=== PATIENT | female | born 1955 | race African-American/Black ===

== ENCOUNTER 2017-10-06 18:02 | Inpatient (IN) | payer MEDICAID, OTHER ==
[~2017-10-06] VITALS: Ht 165.1 cm; Wt 105.2 kg
[2017-10-06] MEDS ORDERED: IPRATROPIUM BROMIDE (0.02%) 0.5MG/2.5ML NEB HHN STA (18:34)
[2017-10-06] MEDS ORDERED: ALBUTEROL (0.083%) 2.5MG/3ML NEB HHN STA (18:34)
[2017-10-06] MEDS ORDERED: METHYLPREDNISOLONE SOD SUCC 125 MG/2 ML VIAL IV STA (18:34)
[2017-10-06 18:40] LABS: BASOPHILS % 0.7 % (0.0-2.0); EOSINOPHILS % 2.5 % (0.0-5.0); HEMATOCRIT. 45.6 % (36.0-48.0); HEMOGLOBIN. 15.1 g/dL (12.0-16.0); LYMPHOCYTES % 15.4 % (20.0-50.0); MEAN CORPUSCULAR HEMOGLOBIN 30.9 pg (28.0-32.0); MEAN CORPUSCULAR VOLUME 93.5 fL (81.0-99.0); MEAN PLATELET VOLUME 8.6 fl (7.4-10.4); MONOCYTES % 6.1 % (2.0-8.0); NEUTROPHILS % 75.3 % (40.0-76.0); PLATELET 400 x1000/uL (130-400); RED BLOOD CELL COUNT 4.88 mill/uL (4.2-5.4); RED CELL DISTRIBUTION WIDTH 14.6 % (11.6-14.6)
[2017-10-06 18:42] LABS: CHLORIDE 103 mEq/L (98-107); INR 1.1; PROTHROMBIN TIME 11.2 sec (9.4-11.6)
[2017-10-06] MEDS ORDERED: MAGNESIUM 2 G PREMIX 50 ML IV ONE (18:45)
[2017-10-06] MEDS ORDERED: SODIUM CHLORIDE 0.9% 1,000 ML IV ONE (19:40)
[2017-10-06] MEDS ORDERED: ACETAMINOPHEN 325MG TABLET PO PRN (20:15)
[2017-10-06] MEDS ORDERED: CLONIDINE 0.1MG TABLET PO PRN (20:15)
[2017-10-06] MEDS ORDERED: LEVOFLOXACIN 500MG PREMIX 100 ML IV SCH (20:15)
[2017-10-06] MEDS ORDERED: GUAIFENESIN 200MG/10ML SUGAR FREE UDC PO PRN (20:15)
[2017-10-06] MEDS ORDERED: ONDANSETRON HCL 4MG/2ML VIAL IV PRN (20:15)
[2017-10-06] MEDS ORDERED: DOCUSATE SODIUM 100MG CAPSULE PO PRN (20:15)
[2017-10-06] MEDS ORDERED: MORPHINE SULFATE 4 MG/ML CPJ (NOT FOR IM USE) IV PRN (20:45)
[2017-10-06] MEDS: LORAZEPAM 2MG/ML CPJ IV PRN (20:55)
[2017-10-06] MEDS: HYDROCODONE/ACETAMINOPHEN 5/325MG TABLET PO PRN (20:56)
[2017-10-06] MEDS ORDERED: LEVOFLOXACIN 500MG PREMIX 100 ML IV NR (23:15)
[2017-10-07] VITALS (12 sets, daily range): BP systolic 124–159; BP diastolic 57–149
[2017-10-07] MEDS: IPRATROPIUM/ALBUTEROL 0.5-3(2.5)MG/3ML NEB INH SCH ×3 (04:46→21:50)
[2017-10-07] MEDS: METHYLPREDNISOLONE SOD SUCC 125 MG/2 ML VIAL IV SCH ×4 (05:17→23:51)
[2017-10-07 06:40] LABS: HEMATOCRIT. 42.4 % (36.0-48.0); MEAN CORPUSCULAR HEMOGLOBIN 30.9 pg (28.0-32.0); MEAN CORPUSCULAR VOLUME 93.5 fL (81.0-99.0); MEAN PLATELET VOLUME 9.1 fl (7.4-10.4); PLATELET 356 x1000/uL (130-400); RED BLOOD CELL COUNT 4.54 mill/uL (4.2-5.4); RED CELL DISTRIBUTION WIDTH 14.7 % (11.6-14.6)
[2017-10-07 07:54] LABS: CHLORIDE 104 mEq/L (98-107)
[2017-10-07] MEDS: ASPIRIN 81MG EC TABLET PO SCH (08:59)
[2017-10-07] MEDS: AMLODIPINE 10MG TABLET PO SCH (08:59)
[2017-10-07] MEDS: ENOXAPARIN 30MG/0.3ML SYR SUBCUT SCH ×2 (09:00→22:10)
[2017-10-07 12:05] LABS: PLATELET ESTIMATE NORMAL
[2017-10-07] MEDS: IPRATROPIUM/ALBUTEROL 0.5-3(2.5)MG/3ML NEB INH PRN ×2 (12:18→16:24)
[2017-10-07] MEDS ORDERED: LIDOCAINE HCL/PF 1% 2ML VIAL ONE (13:26)
[2017-10-07] MEDS: LORAZEPAM 2MG/ML CPJ IV PRN ×2 (14:05→23:02)
[2017-10-07] MEDS ORDERED: TERBUTALINE SULFATE 1MG/ML VIAL SUBCUT NR (15:30)
[2017-10-07 15:59] LABS: BG BASE EXCESS 1.4 mmol/L (-2.0-2.0); BG BILEVEL POS AIRWAY PRESSURE 15/5; BG CARBOXYHEMOGLOBIN 0.5 % (0.5-1.5); BG DEOXYHEMOGLOBIN 2.1 % (0.0-5.0); BG FRACTION INSPIRED OXYGEN 50; BG HCO3 ACT 29.6 mmol/L (22.0-26.0); BG METHEMOGLOBIN 0.4 % (0.0-1.5); BG OXYGEN SATURATION 97.9 % (92.0-98.5); BG PCO2 63.3 mmHg (35.0-45.0); BG PH 7.288 (7.350-7.450); BG PO2 119.1 mmHg (75.0-100.0); BG SAMPLE SITE RIGHT RADIAL; BG TOTAL HEMOGLOBIN 13.9 g/dL (12.0-18.0); BG VENT MODE MASK - BIPAP
[2017-10-07] MEDS ORDERED: NICOTINE 21MG PATCH TD ONE (16:15)
[2017-10-07] MEDS: NICOTINE 21MG PATCH TD SCH (16:50)
[2017-10-07] MEDS ORDERED: LEVOFLOXACIN 500MG PREMIX 100 ML IV SCH (23:00)
[2017-10-08] VITALS (10 sets, daily range): BP systolic 105–147; BP diastolic 48–97
[2017-10-08] MEDS: IPRATROPIUM/ALBUTEROL 0.5-3(2.5)MG/3ML NEB INH SCH ×3 (03:08→12:27)
[2017-10-08] MEDS: METHYLPREDNISOLONE SOD SUCC 125 MG/2 ML VIAL IV SCH ×3 (05:52→17:23)
[2017-10-08 07:09] LABS: CLARITY URINE CLEAR (CLEAR); COLOR URINE YELLOW (YELLOW); KETONES URINE NEGATIVE (NEGATIVE); LEUKOCYTE ESTERASE URINE NEGATIVE (NEGATIVE); NITRITE URINE NEGATIVE (NEGATIVE); OCCULT BLOOD URINE NEGATIVE (NEGATIVE); PROTEIN URINE NEGATIVE (NEGATIVE); SPECIFIC GRAVITY URINE 1.019 (1.005-1.030); UROBILINOGEN URINE 0.2 E.U./dL (0.2-1.0)
[2017-10-08 07:29] LABS: *BARBITURATES SCREEN URINE NEGATIVE (NEGATIVE); *BENZODIAZEPINES SCREEN URINE NEGATIVE (NEGATIVE); *COCAINE SCREEN URINE NEGATIVE (NEGATIVE); METHADONE URINE SCREEN NEGATIVE (NEGATIVE); OPIATES URINE SCREEN PRESUMTIVE POSITIVE (NEGATIVE)
[2017-10-08 07:30] LABS: CANNABINOID URINE SCREEN NEGATIVE (NEGATIVE); PHENCYCLIDINE URINE SCREEN NEGATIVE (NEGATIVE)
[2017-10-08 07:37] LABS: *AMPHETAMINES SCREEN URINE NEGATIVE (NEGATIVE)
[2017-10-08] MEDS: AMLODIPINE 10MG TABLET PO SCH (08:29)
[2017-10-08] MEDS: NICOTINE 21MG PATCH TD SCH (08:39)
[2017-10-08] MEDS: ASPIRIN 81MG EC TABLET PO SCH (08:40)
[2017-10-08] MEDS: ENOXAPARIN 30MG/0.3ML SYR SUBCUT SCH (08:40)
[2017-10-08] MEDS: HYDROCODONE/ACETAMINOPHEN 5/325MG TABLET PO PRN (10:20)
[2017-10-08] MEDS ORDERED: LEVOFLOXACIN 500MG TABLET PO SCH (13:00)
== END 2017-10-08 17:50 | disposition short-term general hospital (02) | DRG 193 ==
LOC: ER 18:02 → 5EST 19:47 → EDBEDREQTM 19:49 → EDBEDREQ 19:49 → SUPCPDRO 20:10 → EDBEDREQSVC 22:21 → ENRESERV 22:47
PROVIDERS: ADMIT Hospitalist; ATTEND Hospitalist
PROC: 5A09457 Assistance with Respiratory Ventilation, 24-96 Consecutive Hours, Continuous Positive Airway Pressure (ICD-10-PCS; principal; 2017-10-06)
DX: J18.9 Pneumonia, unspecified organism (principal); J96.00 Acute respiratory failure, unspecified whether with hypoxia or hypercapnia; J44.0 Chronic obstructive pulmonary disease with (acute) lower respiratory infection; J44.1 Chronic obstructive pulmonary disease with (acute) exacerbation; E66.9 Obesity, unspecified; F17.210 Nicotine dependence, cigarettes, uncomplicated; Z98.51 Tubal ligation status; Z88.6 Allergy status to analgesic agent; Z88.1 Allergy status to other antibiotic agents; Z88.0 Allergy status to penicillin; Z88.8 Allergy status to other drugs, medicaments and biological substances; Z68.38 Body mass index [BMI] 38.0-38.9, adult
CPT/HCPCS: 36415; 36600; 71045; 80053; 80305; 81003; 82375; 82805; 83605; 83690; 83880; 84484; 85025; 85610; 87040; 93005; 94640; 94644; 94660; J1650; J1956; J2060; J2930; J3105; J3475; J3490; J7030; J7611; J7620

== ENCOUNTER 2019-07-04 20:22 | Emergency (ER) | payer OTHER ==
[~2019-07-04] VITALS: Ht 162.6 cm; Wt 100.0 kg
[2019-07-04] MEDS ORDERED: ALBUTEROL (0.083%) 2.5MG/3ML NEB HHN STA (23:03)
[2019-07-04] MEDS ORDERED: PREDNISONE 20MG TABLET PO STA (23:03)
[2019-07-04] MEDS ORDERED: IPRATROPIUM BROMIDE (0.02%) 0.5MG/2.5ML NEB HHN STA (23:03)
[2019-07-04] MEDS ORDERED: FENTANYL CITRATE/PF 50MCG/ML 2ML VIAL IV ONE (23:15)
[2019-07-04] MEDS ORDERED: SODIUM CHLORIDE 0.9% 1000ML BAG (SEPSIS BOLUS) IV ONE (23:15)
[2019-07-04 23:54] LABS: BASOPHILS % 1.1 % (0.0-2.0); EOSINOPHILS % 2.2 % (0.0-5.0); HEMATOCRIT. 29.3 % (36.0-48.0); MEAN CORPUSCULAR HEMOGLOBIN 22.5 pg (28.0-32.0); MEAN CORPUSCULAR VOLUME 73.1 fL (81.0-99.0); MEAN PLATELET VOLUME 8.8 fl (7.4-10.4); MONOCYTES % 7.8 % (2.0-8.0); NEUTROPHILS % 74.9 % (40.0-76.0); PLATELET 226 x1000/uL (130-400); RED BLOOD CELL COUNT 4.01 mill/uL (4.2-5.4); RED CELL DISTRIBUTION WIDTH 19.1 % (11.6-14.6)
[2019-07-05 00:06] LABS: CHLORIDE 104 mEq/L (98-107)
[2019-07-05] MEDS ORDERED: CEFEPIME 1,000 MG in DEXTROSE 5% WATER 50 ML IV SCH (01:00)
[2019-07-05] MEDS ORDERED: VANCOMYCIN 1 G PREMIX 200 ML IV SCH (01:00)
[2019-07-05 02:03] LABS: CLARITY URINE TURBID (CLEAR); COLOR URINE YELLOW (YELLOW); KETONES URINE NEGATIVE (NEGATIVE); LEUKOCYTE ESTERASE URINE 3+ (NEGATIVE); NITRITE URINE POSITIVE (NEGATIVE); OCCULT BLOOD URINE TRACE (NEGATIVE); PH URINE 6.5 (4.5-8.0); PROTEIN URINE 1+ (NEGATIVE); SPECIFIC GRAVITY URINE 1.014 (1.005-1.030)
[2019-07-05] MEDS ORDERED: METHYLPREDNISOLONE SOD SUCC 125 MG/2 ML VIAL IV SCH (02:19)
[2019-07-05 05:00] VITALS: BP 111/62
== END 2019-07-05 06:38 | disposition short-term general hospital (02) ==
LOC: ER 20:22 → CANBEDREQ 07-05 06:45
DX: A41.9 Sepsis, unspecified organism (principal); L03.317 Cellulitis of buttock; J44.1 Chronic obstructive pulmonary disease with (acute) exacerbation; I10 Essential (primary) hypertension; M48.00 Spinal stenosis, site unspecified; Z88.6 Allergy status to analgesic agent; Z88.0 Allergy status to penicillin
CPT/HCPCS: 36415; 71045; 72170; 72220; 80053; 81003; 83605; 83880; 84145; 84484; 85025; 87040; 87086; 87186; 93005; 94644; 96365; 96375; 99291; J0692; J2930; J3010; J3370; J7030; J7060; J7512

== ENCOUNTER 2020-10-28 03:50 | Inpatient (IN) | payer OTHER ==
[2020-10-28] VITALS (45 sets, daily range): BP systolic 92–146; BP diastolic 47–92
[~2020-10-28] VITALS: Ht 165.1 cm; Wt 108.9 kg
[2020-10-28] MEDS ORDERED: ONDANSETRON HCL 4MG/2ML INJ IV STA (04:03)
[2020-10-28] MEDS ORDERED: IPRATROPIUM BROMIDE (0.02%) 0.5MG/2.5ML NEB HHN STA (04:03)
[2020-10-28] MEDS ORDERED: FUROSEMIDE 40MG/4ML VIAL IV ONE (04:15)
[2020-10-28] MEDS ORDERED: NITROGLYCERIN OINT 1GM/INCH UDPKT TD ONE (04:15)
[2020-10-28] MEDS ORDERED: ALBUTEROL (0.083%) 2.5MG/3ML NEB HHN SCH (04:30)
[2020-10-28 04:35] LABS: CHLORIDE 105 mEq/L (98-107)
[2020-10-28] MEDS ORDERED: ETOMIDATE 2MG/ML 10ML VIAL IV ONE (04:45)
[2020-10-28] MEDS ORDERED: PROPOFOL 10MG/ML 100ML 100 ML IV ONE (04:45)
[2020-10-28] MEDS ORDERED: VECURONIUM BROMIDE 10 MG/VIAL IV ONE (04:45)
[2020-10-28 04:52] LABS: BASOPHILS % 1.1 % (0.0-2.0); HEMATOCRIT. 34.8 % (36.0-48.0); HEMOGLOBIN. 10.1 g/dL (12.0-16.0); LYMPHOCYTES % 13.8 % (20.0-50.0); MEAN CORPUSCULAR HEMOGLOBIN 22.7 pg (28.0-32.0); MEAN CORPUSCULAR VOLUME 78.7 fL (81.0-99.0); MEAN PLATELET VOLUME 8.5 fl (7.4-10.4); NEUTROPHILS % 77.1 % (40.0-76.0); PLATELET 504 x1000/uL (130-400); RED BLOOD CELL COUNT 4.42 mill/uL (4.2-5.4); RED CELL DISTRIBUTION WIDTH 21.2 % (11.6-14.6)
[2020-10-28] MEDS ORDERED: MIDAZOLAM HCL 50 MG in DEXTROSE 5% WATER 40 ML IV STA (05:44)
[2020-10-28] MEDS ORDERED: MIDAZOLAM HCL 100 MG in DEXT 5% WATER 80 ML IV PRN (06:00)
[2020-10-28 06:07] LABS: BG CARBOXYHEMOGLOBIN 2.8 % (0.5-1.5); BG DEOXYHEMOGLOBIN 0.2 % (0.0-5.0); BG FRACTION INSPIRED OXYGEN 100; BG HCO3 ACT 34.4 mmol/L (22.0-26.0); BG METHEMOGLOBIN 0.3 % (0.0-1.5); BG OXYGEN SATURATION 99.8 % (92.0-98.5); BG OXYHEMOGLOBIN 96.7 % (94.0-97.0); BG PCO2 58.8 mmHg (35.0-45.0); BG PH 7.385 (7.350-7.450); BG PO2 379.6 mmHg (75.0-100.0); BG SAMPLE SITE LEFT RADIAL; BG TOTAL HEMOGLOBIN 9.6 g/dL (12.0-18.0); BG VENT MODE VENT - AC
[2020-10-28] MEDS: MIDAZOLAM HCL 100 MG in SODIUM CHLORIDE 0.9% 80 ML IV PRN ×3 (06:28→17:47)
[2020-10-28] MEDS ORDERED: HYDRALAZINE 20MG/ML VIAL IV PRN (08:00)
[2020-10-28] MEDS ORDERED: ONDANSETRON HCL 4MG/2ML INJ IV PRN (08:00)
[2020-10-28] MEDS ORDERED: DIPHENHYDRAMINE 50MG/ML VIAL IV PRN (08:00)
[2020-10-28] MEDS ORDERED: IPRATROPIUM/ALBUTEROL 0.5-3(2.5)MG/3ML NEB HHN PRN (08:00)
[2020-10-28] MEDS ORDERED: CLONIDINE 0.1MG TABLET PO PRN (08:00)
[2020-10-28] MEDS ORDERED: GUAIFENESIN 200MG/10ML SUGAR FREE UDC PO PRN (08:00)
[2020-10-28] MEDS ORDERED: DOCUSATE SODIUM 100MG CAPSULE PO PRN (08:00)
[2020-10-28] MEDS ORDERED: MAGNESIUM/ALUMINUM HYDROXIDE/SIMETHICONE 30ML UDC PO PRN (08:00)
[2020-10-28] MEDS ORDERED: ENOXAPARIN 40MG/0.4ML SYR SUBCUT SCH ×2 (08:00→09:00)
[2020-10-28] MEDS ORDERED: HYDROCODONE/ACETAMINOPHEN 5/325MG TABLET PO PRN (08:00)
[2020-10-28] MEDS ORDERED: MORPHINE SULFATE 2 MG/ML CPJ (NOT FOR IM USE) IV PRN (08:00)
[2020-10-28] MEDS ORDERED: LORAZEPAM 2MG/ML CPJ IV PRN (08:00)
[2020-10-28] MEDS ORDERED: ACETAMINOPHEN 325MG TABLET PO PRN (08:00)
[2020-10-28] MEDS ORDERED: NOREPINEPHRINE 8MG/250ML PMX 250 ML IV ONE (08:30)
[2020-10-28] MEDS ORDERED: FENTANYL CITRATE/PF 2,500 MCG in SODIUM CHLORIDE 0.9% 200 ML IV PRN ×2 (08:30→09:11)
[2020-10-28] MEDS: NOREPINEPHRINE 8MG/250ML PMX 250 ML IV PRN ×2 (08:49→12:06)
[2020-10-28] MEDS ORDERED: LEVOFLOXACIN 500MG PREMIX 100 ML IV SCH (09:00)
[2020-10-28] MEDS: DEXT 5%/0.45% NACL 1000ML 1,000 ML IV SCH (09:00)
[2020-10-28] MEDS: FENTANYL CITRATE/PF 2,500 MCG in SODIUM CHLORIDE 0.9% 200 ML IV PRN ×2 (09:50→17:54)
[2020-10-28 12:37] LABS: PROTHROMBIN TIME 10.9 sec (9.6-11.0)
[2020-10-28 12:45] LABS: *BENZODIAZEPINES SCREEN URINE PRESUMTIVE POSITIVE (NEGATIVE); *COCAINE SCREEN URINE NEGATIVE (NEGATIVE)
[2020-10-28 12:46] LABS: *AMPHETAMINES SCREEN URINE NEGATIVE (NEGATIVE); *BARBITURATES SCREEN URINE NEGATIVE (NEGATIVE); METHADONE URINE SCREEN NEGATIVE (NEGATIVE); OPIATES URINE SCREEN NEGATIVE (NEGATIVE)
[2020-10-28 12:47] LABS: CLARITY URINE CLEAR (CLEAR); COLOR URINE YELLOW (YELLOW); KETONES URINE NEGATIVE (NEGATIVE); LEUKOCYTE ESTERASE URINE 2+ (NEGATIVE); NITRITE URINE NEGATIVE (NEGATIVE); OCCULT BLOOD URINE 3+ (NEGATIVE); PROTEIN URINE NEGATIVE (NEGATIVE); SPECIFIC GRAVITY URINE 1.044 (1.005-1.030)
[2020-10-28 12:52] LABS: PHENCYCLIDINE URINE SCREEN NEGATIVE (NEGATIVE)
[2020-10-28 12:54] LABS: CANNABINOID URINE SCREEN NEGATIVE (NEGATIVE)
[2020-10-28] MEDS: FAMOTIDINE 20MG TABLET PO SCH ×2 (13:14→22:56)
[2020-10-28] MEDS: ENOXAPARIN 40MG/0.4ML SYR SUBCUT SCH (13:15)
[2020-10-28] MEDS: LEVOFLOXACIN 500MG PREMIX 100 ML IV SCH (13:15)
[2020-10-28] MEDS: METHYLPREDNISOLONE SOD SUCC 40 MG/ML VIAL IV SCH ×3 (13:23→22:56)
[2020-10-28] MEDS ORDERED: LIDOCAINE HCL 1% 20ML VIAL (Pyxis) INJ ONE ×2 (13:39→13:40)
[2020-10-28] MEDS: SODIUM CHLORIDE 0.9% INJ 3ML FLUSH IVF SCH ×2 (14:00→22:00)
[2020-10-28] MEDS ORDERED: IOHEXOL-350 100 ML BOTTLE ONE (14:21)
[2020-10-28] MEDS: IPRATROPIUM/ALBUTEROL 0.5-3(2.5)MG/3ML NEB HHN SCH (20:45)
[2020-10-28 21:49] LABS: CREATINE KINASE MB FRACTION 1.4 ng/mL (0.5-3.6)
[2020-10-29] VITALS (77 sets, daily range): BP systolic 86–159; BP diastolic 45–89
[2020-10-29] MEDS: IPRATROPIUM/ALBUTEROL 0.5-3(2.5)MG/3ML NEB HHN SCH ×6 (00:17→21:02)
[2020-10-29] MEDS: ENOXAPARIN 40MG/0.4ML SYR SUBCUT SCH ×2 (01:27→12:14)
[2020-10-29] MEDS: DEXT 5%/0.45% NACL 1000ML 1,000 ML IV SCH (04:00)
[2020-10-29] MEDS: SODIUM CHLORIDE 0.9% INJ 3ML FLUSH IVF SCH (05:06)
[2020-10-29] MEDS: METHYLPREDNISOLONE SOD SUCC 40 MG/ML VIAL IV SCH ×3 (05:06→22:05)
[2020-10-29 05:52] LABS: HEMATOCRIT. 28.8 % (36.0-48.0); HEMOGLOBIN. 8.3 g/dL (12.0-16.0); MEAN CORPUSCULAR HEMOGLOBIN 22.2 pg (28.0-32.0); MEAN CORPUSCULAR VOLUME 76.9 fL (81.0-99.0); MEAN PLATELET VOLUME 8.8 fl (7.4-10.4); PLATELET 366 x1000/uL (130-400); RED BLOOD CELL COUNT 3.74 mill/uL (4.2-5.4); RED CELL DISTRIBUTION WIDTH 20.3 % (11.6-14.6)
[2020-10-29 05:55] LABS: CHLORIDE 106 mEq/L (98-107)
[2020-10-29] MEDS: FAMOTIDINE 20MG TABLET PO SCH ×2 (09:06→22:05)
[2020-10-29 09:37] LABS: BG BASE EXCESS 8.7 mmol/L (-2.0-2.0); BG CARBOXYHEMOGLOBIN 1.1 % (0.5-1.5); BG DEOXYHEMOGLOBIN 5.1 % (0.0-5.0); BG FRACTION INSPIRED OXYGEN 60; BG HCO3 ACT 34.1 mmol/L (22.0-26.0); BG METHEMOGLOBIN 0.2 % (0.0-1.5); BG OXYGEN SATURATION 94.8 % (92.0-98.5); BG OXYHEMOGLOBIN 93.6 % (94.0-97.0); BG PCO2 51.8 mmHg (35.0-45.0); BG PH 7.436 (7.350-7.450); BG PO2 70.5 mmHg (75.0-100.0); BG SAMPLE SITE RIGHT RADIAL; BG TOTAL HEMOGLOBIN 9.2 g/dL (12.0-18.0); BG VENT MODE VENT - AC
[2020-10-29] MEDS ORDERED: POTASSIUM CHLORIDE 20MEQ TABLET SR PO NR (09:45)
[2020-10-29] MEDS: FUROSEMIDE 40MG/4ML VIAL IVP SCH ×2 (10:25→17:18)
[2020-10-29] MEDS: LEVOFLOXACIN 500MG PREMIX 100 ML IV SCH (12:15)
[2020-10-29 17:13] LABS: PLATELET ESTIMATE NORMAL
[2020-10-29] MEDS: FENTANYL CITRATE/PF 2,500 MCG in SODIUM CHLORIDE 0.9% 200 ML IV PRN (18:23)
[2020-10-29] MEDS ORDERED: NOREPINEPHRINE 8 MG in DEXTROSE 5% WATER 250 ML IV PRN (19:45)
[2020-10-29] MEDS: MIDAZOLAM HCL 100 MG in SODIUM CHLORIDE 0.9% 80 ML IV PRN (20:02)
[2020-10-29] MEDS: ENOXAPARIN 30MG/0.3ML SYR SUBCUT SCH (22:06)
[2020-10-30] VITALS (74 sets, daily range): BP systolic 94–158; BP diastolic 59–87
[2020-10-30] MEDS ORDERED: MIDAZOLAM HCL 100 MG in SODIUM CHLORIDE 0.9% 80 ML IV PRN (00:30)
[2020-10-30] MEDS: IPRATROPIUM/ALBUTEROL 0.5-3(2.5)MG/3ML NEB HHN SCH ×6 (01:03→20:32)
[2020-10-30 05:54] LABS: HEMATOCRIT. 27.7 % (36.0-48.0); HEMOGLOBIN. 8.4 g/dL (12.0-16.0); MEAN CORPUSCULAR VOLUME 75.9 fL (81.0-99.0); MEAN PLATELET VOLUME 8.7 fl (7.4-10.4); PLATELET 371 x1000/uL (130-400); RED BLOOD CELL COUNT 3.65 mill/uL (4.2-5.4); RED CELL DISTRIBUTION WIDTH 20.4 % (11.6-14.6)
[2020-10-30] MEDS: FUROSEMIDE 40MG/4ML VIAL IVP SCH ×2 (06:22→17:56)
[2020-10-30] MEDS: METHYLPREDNISOLONE SOD SUCC 40 MG/ML VIAL IV SCH ×3 (06:22→17:56)
[2020-10-30 08:48] LABS: PLATELET ESTIMATE NORMAL
[2020-10-30] MEDS: FAMOTIDINE 20MG TABLET PO SCH ×2 (09:00→20:46)
[2020-10-30 10:05] LABS: BG BASE EXCESS 9.2 mmol/L (-2.0-2.0); BG CARBOXYHEMOGLOBIN 0.3 % (0.5-1.5); BG DEOXYHEMOGLOBIN 10.6 % (0.0-5.0); BG FRACTION INSPIRED OXYGEN 40; BG HCO3 ACT 36.1 mmol/L (22.0-26.0); BG METHEMOGLOBIN 0.3 % (0.0-1.5); BG OXYGEN SATURATION 89.3 % (92.0-98.5); BG OXYHEMOGLOBIN 88.8 % (94.0-97.0); BG PCO2 63.4 mmHg (35.0-45.0); BG PH 7.373 (7.350-7.450); BG PO2 61.8 mmHg (75.0-100.0); BG SAMPLE SITE RIGHT RADIAL; BG TOTAL HEMOGLOBIN 9.7 g/dL (12.0-18.0); BG VENT MODE VENT - CPAP
[2020-10-30] MEDS: ENOXAPARIN 30MG/0.3ML SYR SUBCUT SCH ×2 (10:27→20:46)
[2020-10-30] MEDS: LEVOFLOXACIN 500MG PREMIX 100 ML IV SCH (13:55)
[2020-10-30] MEDS: METOCLOPRAMIDE HCL 10MG/2ML VIAL IV SCH ×2 (13:56→17:56)
[2020-10-30] MEDS: FENTANYL CITRATE/PF 2,500 MCG in SODIUM CHLORIDE 0.9% 200 ML IV PRN (17:38)
== END 2020-10-31 00:01 | disposition short-term general hospital (02) | DRG 208 ==
LOC: ER 03:50 → CVICU 06:07 → ENRESERV 07:40
PROVIDERS: ADMIT Internal Medicine; ATTEND Internal Medicine
PROC: 5A1945Z Respiratory Ventilation, 24-96 Consecutive Hours (ICD-10-PCS; principal; 2020-10-28)
PROC: 0BH17EZ Insertion of Endotracheal Airway into Trachea, Via Natural or Artificial Opening (ICD-10-PCS; 2020-10-28)
PROC: 02HV33Z Insertion of Infusion Device into Superior Vena Cava, Percutaneous Approach (ICD-10-PCS; 2020-10-28)
PROC: B548ZZA Ultrasonography of Superior Vena Cava, Guidance (ICD-10-PCS; 2020-10-28)
DX: J96.02 Acute respiratory failure with hypercapnia (principal); I50.33 Acute on chronic diastolic (congestive) heart failure; J44.1 Chronic obstructive pulmonary disease with (acute) exacerbation; N39.0 Urinary tract infection, site not specified; R65.10 Systemic inflammatory response syndrome (SIRS) of non-infectious origin without acute organ dysfunction; D50.9 Iron deficiency anemia, unspecified; E66.01 Morbid (severe) obesity due to excess calories; Z20.822 Contact with and (suspected) exposure to COVID-19; E78.5 Hyperlipidemia, unspecified; E87.70 Fluid overload, unspecified; F17.210 Nicotine dependence, cigarettes, uncomplicated; Z79.899 Other long term (current) drug therapy; Z82.49 Family history of ischemic heart disease and other diseases of the circulatory system; Z88.0 Allergy status to penicillin; Z71.6 Tobacco abuse counseling; Z68.39 Body mass index [BMI] 39.0-39.9, adult; I11.0 Hypertensive heart disease with heart failure; R74.8 Abnormal levels of other serum enzymes
CPT/HCPCS: 36415; 36600; 71045; 71275; 74018; 76937; 80048; 80053; 80061; 80305; 81003; 82375; 82550; 82553; 82805; 83605; 83735; 83880; 84484; 85025; 87070; 87077; 87186; 87426; 93005; 93306; 93970; 94003; 94640; 99291; C1725; J1200; J1650; J1940; J1956; J2250; J2405; J2704; J2765; J2920; J3010; J3490; J7050; J7060; Q9967

== ENCOUNTER 2020-11-16 13:38 | Inpatient (IN) | payer MEDICARE, OTHER ==
[~2020-11-16] VITALS: Ht 165.1 cm; Wt 112.7 kg
[2020-11-16] MEDS ORDERED: METHYLPREDNISOLONE SOD SUCC 125 MG/2 ML VIAL IV STA (14:02)
[2020-11-16] MEDS ORDERED: IPRATROPIUM BROMIDE (0.02%) 0.5MG/2.5ML NEB HHN STA (14:02)
[2020-11-16] MEDS: ALBUTEROL (0.083%) 2.5MG/3ML NEB HHN SCH ×3 (14:41→15:54)
[2020-11-16 15:09] LABS: CHLORIDE 105 mEq/L (98-107)
[2020-11-16 15:14] LABS: ETHANOL BLOOD < 10 mg/dL
[2020-11-16 15:18] LABS: CREATINE KINASE 37 IU/L (26-192)
[2020-11-16 15:19] LABS: PROTHROMBIN TIME 10.9 sec (9.6-11.0)
[2020-11-16 15:24] LABS: HEMATOCRIT. 25.1 % (36.0-48.0); HEMOGLOBIN. 7.7 g/dL (12.0-16.0); MEAN CORPUSCULAR HEMOGLOBIN 24.1 pg (28.0-32.0); MEAN CORPUSCULAR VOLUME 78.5 fL (81.0-99.0); MEAN PLATELET VOLUME 8.1 fl (7.4-10.4); PLATELET 549 x1000/uL (130-400); RED BLOOD CELL COUNT 3.19 mill/uL (4.2-5.4); RED CELL DISTRIBUTION WIDTH 22.8 % (11.6-14.6)
[2020-11-16 15:32] LABS: BG BASE EXCESS 10.6 mmol/L (-2.0-2.0); BG CARBOXYHEMOGLOBIN 1.7 % (0.5-1.5); BG DEOXYHEMOGLOBIN 4.8 % (0.0-5.0); BG HCO3 ACT 38.4 mmol/L (22.0-26.0); BG METHEMOGLOBIN 0.3 % (0.0-1.5); BG OXYGEN SATURATION 95.1 % (92.0-98.5); BG OXYHEMOGLOBIN 93.2 % (94.0-97.0); BG PCO2 75.7 mmHg (35.0-45.0); BG PH 7.323 (7.350-7.450); BG PO2 80.9 mmHg (75.0-100.0); BG SAMPLE SITE RIGHT RADIAL; BG TOTAL HEMOGLOBIN 8.6 g/dL (12.0-18.0); BG VENT MODE MASK - BIPAP
[2020-11-16] MEDS ORDERED: VANCOMYCIN 1 G PREMIX 200 ML IV SCH (15:45)
[2020-11-16] MEDS ORDERED: FUROSEMIDE 40MG/4ML VIAL IVP ONE (16:00)
[2020-11-16] MEDS ORDERED: ONDANSETRON HCL 4MG/2ML INJ IV PRN (16:30)
[2020-11-16] MEDS ORDERED: DIPHENHYDRAMINE 50MG/ML VIAL IV PRN (16:30)
[2020-11-16] MEDS ORDERED: MAGNESIUM/ALUMINUM HYDROXIDE/SIMETHICONE 30ML UDC PO PRN (16:30)
[2020-11-16] MEDS ORDERED: IPRATROPIUM/ALBUTEROL 0.5-3(2.5)MG/3ML NEB HHN PRN (16:30)
[2020-11-16] MEDS ORDERED: DOCUSATE SODIUM 100MG CAPSULE PO PRN (16:30)
[2020-11-16] MEDS ORDERED: CLONIDINE 0.1MG TABLET PO PRN (16:30)
[2020-11-16] MEDS ORDERED: HYDROCODONE/ACETAMINOPHEN 5/325MG TABLET PO PRN (16:30)
[2020-11-16] MEDS ORDERED: MORPHINE SULFATE 2 MG/ML CPJ (NOT FOR IM USE) IV PRN (16:30)
[2020-11-16] MEDS ORDERED: ACETAMINOPHEN 325MG TABLET PO PRN (16:30)
[2020-11-16] MEDS ORDERED: POTASSIUM CHLORIDE 20MEQ TABLET SR PO ONE (16:30)
[2020-11-16] MEDS ORDERED: HYDRALAZINE 20MG/ML VIAL IV PRN (16:30)
[2020-11-16] MEDS ORDERED: POTASSIUM CHLORIDE 20MEQ TABLET SR PO NR (16:46)
[2020-11-16] MEDS: AZTREONAM 1 G in DEXTROSE 5% WATER 50 ML IV SCH (17:04)
[2020-11-16] MEDS: LEVOFLOXACIN 500MG PREMIX 100 ML IV SCH (17:08)
[2020-11-16 17:35] LABS: PLATELET ESTIMATE INCREASED
[2020-11-16] MEDS: ENOXAPARIN 30MG/0.3ML SYR SUBCUT SCH (18:09)
[2020-11-16] MEDS: SODIUM CHLORIDE 0.9% INJ 3ML FLUSH IVF SCH (22:00)
[2020-11-16] MEDS: LORAZEPAM 2MG/ML CPJ IV PRN (23:46)
[2020-11-17] MEDS: AZTREONAM 1 G in DEXTROSE 5% WATER 50 ML IV SCH ×2 (04:47→17:46)
[2020-11-17] MEDS: LORAZEPAM 2MG/ML CPJ IV PRN ×2 (04:52→19:57)
[2020-11-17] MEDS: SODIUM CHLORIDE 0.9% INJ 3ML FLUSH IVF SCH ×3 (06:00→22:00)
[2020-11-17] MEDS: ENOXAPARIN 30MG/0.3ML SYR SUBCUT SCH ×2 (06:57→19:56)
[2020-11-17 10:37] LABS: HEMATOCRIT. 25.8 % (36.0-48.0); HEMOGLOBIN. 8.1 g/dL (12.0-16.0); MEAN CORPUSCULAR HEMOGLOBIN 24.5 pg (28.0-32.0); MEAN CORPUSCULAR VOLUME 78.3 fL (81.0-99.0); RED BLOOD CELL COUNT 3.29 mill/uL (4.2-5.4); RED CELL DISTRIBUTION WIDTH 22.6 % (11.6-14.6)
[2020-11-17 10:43] LABS: CHLORIDE 101 mEq/L (98-107)
[2020-11-17 11:55] LABS: PLATELET ESTIMATE INCREASED
[2020-11-17 11:56] LABS: MEAN PLATELET VOLUME 8.5 fl (7.4-10.4); PLATELET 447 x1000/uL (130-400)
[2020-11-17 12:33] LABS: BG BASE EXCESS 14.8 mmol/L (-2.0-2.0); BG CARBOXYHEMOGLOBIN 0.3 % (0.5-1.5); BG DEOXYHEMOGLOBIN 0.7 % (0.0-5.0); BG FRACTION INSPIRED OXYGEN 100; BG HCO3 ACT 44.2 mmol/L (22.0-26.0); BG METHEMOGLOBIN 0.8 % (0.0-1.5); BG OXYGEN SATURATION 99.3 % (92.0-98.5); BG OXYHEMOGLOBIN 98.2 % (94.0-97.0); BG PCO2 97.5 mmHg (35.0-45.0); BG PH 7.274 (7.350-7.450); BG PO2 353.1 mmHg (75.0-100.0); BG SAMPLE SITE RIGHT RADIAL; BG TOTAL HEMOGLOBIN 8.7 g/dL (12.0-18.0); BG VENT MODE MASK - NRB
[2020-11-17] MEDS: FUROSEMIDE 40MG/4ML VIAL IVP SCH (17:35)
[2020-11-17] MEDS ORDERED: NALOXONE HCL 0.4MG/ML VIAL IV PRN (18:30)
[2020-11-17] MEDS: LEVOFLOXACIN 500MG PREMIX 100 ML IV SCH (18:32)
[2020-11-17] MEDS: METHYLPREDNISOLONE SOD SUCC 40 MG/ML VIAL IV SCH (19:57)
[2020-11-17] MEDS: IPRATROPIUM/ALBUTEROL 0.5-3(2.5)MG/3ML NEB HHN SCH (20:20)
[2020-11-17 22:13] LABS: BG BASE EXCESS 16.2 mmol/L (-2.0-2.0); BG CARBOXYHEMOGLOBIN 0.9 % (0.5-1.5); BG DEOXYHEMOGLOBIN 8.4 % (0.0-5.0); BG FRACTION INSPIRED OXYGEN 28; BG HCO3 ACT 41.4 mmol/L (22.0-26.0); BG OXYGEN SATURATION 91.5 % (92.0-98.5); BG OXYHEMOGLOBIN 90.7 % (94.0-97.0); BG PCO2 54.9 mmHg (35.0-45.0); BG PH 7.495 (7.350-7.450); BG PO2 56.5 mmHg (75.0-100.0); BG SAMPLE SITE RIGHT RADIAL; BG TOTAL HEMOGLOBIN 8.9 g/dL (12.0-18.0); BG VENT MODE MASK - CPAP
[2020-11-18] VITALS (7 sets, daily range): BP systolic 103–139; BP diastolic 66–81
[2020-11-18] MEDS: METHYLPREDNISOLONE SOD SUCC 40 MG/ML VIAL IV SCH ×3 (02:33→18:28)
[2020-11-18] MEDS: IPRATROPIUM/ALBUTEROL 0.5-3(2.5)MG/3ML NEB HHN SCH ×5 (03:40→20:49)
[2020-11-18] MEDS: AZTREONAM 1 G in DEXTROSE 5% WATER 50 ML IV SCH (04:00)
[2020-11-18] MEDS: SODIUM CHLORIDE 0.9% INJ 3ML FLUSH IVF SCH ×3 (06:00→21:46)
[2020-11-18] MEDS: LORAZEPAM 2MG/ML CPJ IV PRN ×3 (06:19→19:14)
[2020-11-18 07:17] LABS: CLARITY URINE CLEAR (CLEAR); COLOR URINE YELLOW (YELLOW); KETONES URINE 1+ (NEGATIVE); LEUKOCYTE ESTERASE URINE 3+ (NEGATIVE); NITRITE URINE POSITIVE (NEGATIVE); OCCULT BLOOD URINE NEGATIVE (NEGATIVE); PROTEIN URINE TRACE (NEGATIVE); SPECIFIC GRAVITY URINE 1.015 (1.005-1.030)
[2020-11-18 07:33] LABS: *AMPHETAMINES SCREEN URINE NEGATIVE (NEGATIVE); *BARBITURATES SCREEN URINE NEGATIVE (NEGATIVE); *BENZODIAZEPINES SCREEN URINE NEGATIVE (NEGATIVE)
[2020-11-18 07:34] LABS: *COCAINE SCREEN URINE NEGATIVE (NEGATIVE); CANNABINOID URINE SCREEN NEGATIVE (NEGATIVE); METHADONE URINE SCREEN NEGATIVE (NEGATIVE); OPIATES URINE SCREEN PRESUMTIVE POSITIVE (NEGATIVE); PHENCYCLIDINE URINE SCREEN NEGATIVE (NEGATIVE)
[2020-11-18] MEDS: ENOXAPARIN 30MG/0.3ML SYR SUBCUT SCH ×2 (07:48→18:00)
[2020-11-18] MEDS: FUROSEMIDE 40MG/4ML VIAL IVP SCH ×2 (11:45→17:00)
[2020-11-18] MEDS ORDERED: MONT10TA32 PO (12:20)
[2020-11-18] MEDS ORDERED: TIOT4MIS2 IH (12:20)
[2020-11-18] MEDS ORDERED: [UNRECOGNIZED DRUG - CODE] PO (12:20)
[2020-11-18] MEDS ORDERED: FURO40TA5 PO (12:20)
[2020-11-18] MEDS ORDERED: LORA-249 PO (12:20)
[2020-11-18] MEDS ORDERED: [UNRECOGNIZED DRUG - CODE] PO (12:20)
[2020-11-18 12:38] LABS: BG BASE EXCESS 15.8 mmol/L (-2.0-2.0); BG CARBOXYHEMOGLOBIN 0.8 % (0.5-1.5); BG DEOXYHEMOGLOBIN 8.7 % (0.0-5.0); BG HCO3 ACT 41.2 mmol/L (22.0-26.0); BG METHEMOGLOBIN 0.2 % (0.0-1.5); BG OXYGEN SATURATION 91.2 % (92.0-98.5); BG OXYHEMOGLOBIN 90.3 % (94.0-97.0); BG PCO2 56.3 mmHg (35.0-45.0); BG PH 7.482 (7.350-7.450); BG PO2 65.3 mmHg (75.0-100.0); BG SAMPLE SITE RIGHT RADIAL; BG TOTAL HEMOGLOBIN 9.2 g/dL (12.0-18.0); BG VENT MODE NASAL CANNULA
[2020-11-18] MEDS: PREGABALIN 75MG CAPSULE PO SCH (17:00)
[2020-11-18] MEDS: LEVOFLOXACIN 500MG PREMIX 100 ML IV SCH (19:15)
[2020-11-18] MEDS: MONTELUKAST SODIUM 10MG TABLET PO SCH (21:46)
[2020-11-19] VITALS (11 sets, daily range): BP systolic 100–123; BP diastolic 63–76
[2020-11-19] MEDS: IPRATROPIUM/ALBUTEROL 0.5-3(2.5)MG/3ML NEB HHN SCH ×6 (00:48→20:22)
[2020-11-19] MEDS: METHYLPREDNISOLONE SOD SUCC 40 MG/ML VIAL IV SCH ×3 (03:18→18:15)
[2020-11-19] MEDS: ENOXAPARIN 30MG/0.3ML SYR SUBCUT SCH (05:34)
[2020-11-19] MEDS: SODIUM CHLORIDE 0.9% INJ 3ML FLUSH IVF SCH ×3 (05:38→22:38)
[2020-11-19 07:15] LABS: HEMATOCRIT. 25.4 % (36.0-48.0); HEMOGLOBIN. 7.9 g/dL (12.0-16.0); MEAN CORPUSCULAR VOLUME 76.9 fL (81.0-99.0); MEAN PLATELET VOLUME 8.4 fl (7.4-10.4); PLATELET 490 x1000/uL (130-400); RED CELL DISTRIBUTION WIDTH 23.1 % (11.6-14.6)
[2020-11-19 07:23] LABS: CHLORIDE 97 mEq/L (98-107)
[2020-11-19] MEDS: LORAZEPAM 2MG/ML CPJ IV PRN ×2 (08:41→22:38)
[2020-11-19] MEDS: FUROSEMIDE 40MG/4ML VIAL IVP SCH ×2 (08:41→18:15)
[2020-11-19] MEDS: PREGABALIN 75MG CAPSULE PO SCH ×2 (08:42→22:37)
[2020-11-19 16:31] LABS: PLATELET ESTIMATE INCREASED
[2020-11-19] MEDS: LEVOFLOXACIN 500MG PREMIX 100 ML IV SCH (18:15)
[2020-11-19] MEDS: MONTELUKAST SODIUM 10MG TABLET PO SCH (22:37)
[2020-11-20] VITALS (12 sets, daily range): BP systolic 102–128; BP diastolic 66–78
[2020-11-20] MEDS: IPRATROPIUM/ALBUTEROL 0.5-3(2.5)MG/3ML NEB HHN SCH ×6 (00:12→20:55)
[2020-11-20] MEDS: METHYLPREDNISOLONE SOD SUCC 40 MG/ML VIAL IV SCH ×3 (02:51→17:30)
[2020-11-20] MEDS: SODIUM CHLORIDE 0.9% INJ 3ML FLUSH IVF SCH ×3 (06:46→21:01)
[2020-11-20 07:23] LABS: HEMATOCRIT. 25.6 % (36.0-48.0); HEMOGLOBIN. 7.8 g/dL (12.0-16.0); MEAN CORPUSCULAR HEMOGLOBIN 23.7 pg (28.0-32.0); MEAN CORPUSCULAR VOLUME 78.2 fL (81.0-99.0); MEAN PLATELET VOLUME 8.8 fl (7.4-10.4); PLATELET 470 x1000/uL (130-400); RED BLOOD CELL COUNT 3.28 mill/uL (4.2-5.4); RED CELL DISTRIBUTION WIDTH 21.9 % (11.6-14.6)
[2020-11-20 07:35] LABS: CHLORIDE 94 mEq/L (98-107)
[2020-11-20 08:13] LABS: BG BASE EXCESS 12.5 mmol/L (-2.0-2.0); BG CARBOXYHEMOGLOBIN 0.2 % (0.5-1.5); BG DEOXYHEMOGLOBIN 5.5 % (0.0-5.0); BG FRACTION INSPIRED OXYGEN 32; BG HCO3 ACT 37.5 mmol/L (22.0-26.0); BG METHEMOGLOBIN 0.1 % (0.0-1.5); BG OXYGEN SATURATION 94.5 % (92.0-98.5); BG OXYHEMOGLOBIN 94.2 % (94.0-97.0); BG PCO2 52.4 mmHg (35.0-45.0); BG PH 7.473 (7.350-7.450); BG PO2 73.8 mmHg (75.0-100.0); BG SAMPLE SITE RIGHT RADIAL; BG TOTAL HEMOGLOBIN 8.2 g/dL (12.0-18.0); BG VENT MODE NASAL CANNULA
[2020-11-20] MEDS: PREGABALIN 75MG CAPSULE PO SCH ×2 (08:43→17:25)
[2020-11-20] MEDS: FUROSEMIDE 40MG/4ML VIAL IVP SCH ×2 (08:43→17:26)
[2020-11-20] MEDS: PANTOPRAZOLE SODIUM 40 MG/VIAL IV SCH ×2 (12:22→22:17)
[2020-11-20] MEDS: LORAZEPAM 2MG/ML CPJ IV PRN (17:25)
[2020-11-20] MEDS: LEVOFLOXACIN 500MG PREMIX 100 ML IV SCH (17:30)
[2020-11-20] MEDS ORDERED: IOHEXOL-300 100 ML BOTTLE ONE (19:40)
[2020-11-20 19:49] LABS: PLATELET ESTIMATE INCREASED
[2020-11-20] MEDS: MONTELUKAST SODIUM 10MG TABLET PO SCH (20:54)
[2020-11-20] MEDS: GUAIFENESIN 200MG/10ML SUGAR FREE UDC PO PRN (20:59)
[2020-11-20] MEDS ORDERED: METOPROLOL TARTRATE 5MG/5ML VIAL IV NR (21:45)
[2020-11-21] VITALS (17 sets, daily range): BP systolic 95–131; BP diastolic 40–97
[2020-11-21] MEDS: IPRATROPIUM/ALBUTEROL 0.5-3(2.5)MG/3ML NEB HHN SCH ×4 (01:05→13:10)
[2020-11-21] MEDS: METHYLPREDNISOLONE SOD SUCC 40 MG/ML VIAL IV SCH ×2 (03:02→09:38)
[2020-11-21] MEDS: SODIUM CHLORIDE 0.9% INJ 3ML FLUSH IVF SCH ×3 (05:27→22:03)
[2020-11-21] MEDS: PREGABALIN 75MG CAPSULE PO SCH ×2 (09:36→16:09)
[2020-11-21] MEDS: FUROSEMIDE 40MG/4ML VIAL IVP SCH (09:36)
[2020-11-21] MEDS: PANTOPRAZOLE SODIUM 40 MG/VIAL IV SCH ×2 (09:36→22:02)
[2020-11-21 09:54] LABS: HEMATOCRIT 22.2 % (36.0-48.0); HEMOGLOBIN 7.2 g/dL (12.0-16.0)
[2020-11-21] MEDS: LORAZEPAM 2MG/ML CPJ IV PRN ×2 (11:56→16:09)
[2020-11-21] MEDS: GUAIFENESIN 200MG/10ML SUGAR FREE UDC PO PRN (11:56)
[2020-11-21] MEDS ORDERED: SODIUM CHLORIDE 0.9% 500 ML IV ONE (14:30)
[2020-11-21] MEDS ORDERED: METOPROLOL TARTRATE 25MG TABLET PO NR (14:45)
[2020-11-21] MEDS: LEVOFLOXACIN 500MG PREMIX 100 ML IV SCH (18:55)
[2020-11-21] MEDS: IPRATROPIUM BROMIDE (0.02%) 0.5MG/2.5ML NEB HHN SCH (20:59)
[2020-11-21] MEDS ORDERED: METOPROLOL TARTRATE 25MG TABLET PO SCH (21:00)
[2020-11-21 21:56] LABS: HEMATOCRIT 26.9 % (36.0-48.0); HEMOGLOBIN 8.4 g/dL (12.0-16.0)
[2020-11-21] MEDS: MONTELUKAST SODIUM 10MG TABLET PO SCH (22:02)
[2020-11-21] MEDS ORDERED: DIGOXIN 500MCG/2ML AMP IV NR (23:45)
[2020-11-22] VITALS: BP 100/69
[2020-11-22] MEDS: IPRATROPIUM BROMIDE (0.02%) 0.5MG/2.5ML NEB HHN SCH (01:12)
[2020-11-22 02:00] VITALS: BP 104/64
[2020-11-22] MEDS ORDERED: METHYLPREDNISOLONE SOD SUCC 40 MG/ML VIAL IV SCH (09:00)
== END 2020-11-22 02:05 | disposition short-term general hospital (02) | DRG 291 ==
LOC: ER 13:38 → 3WST 16:12 → EDBEDREQSVC 11-18 08:20 → ENRESERV 11-18 08:48
PROVIDERS: ADMIT Internal Medicine; ATTEND Internal Medicine
PROC: 5A09457 Assistance with Respiratory Ventilation, 24-96 Consecutive Hours, Continuous Positive Airway Pressure (ICD-10-PCS; principal; 2020-11-16)
PROC: 5A09357 Assistance with Respiratory Ventilation, Less than 24 Consecutive Hours, Continuous Positive Airway Pressure (ICD-10-PCS; 2020-11-18)
PROC: 5A09357 Assistance with Respiratory Ventilation, Less than 24 Consecutive Hours, Continuous Positive Airway Pressure (ICD-10-PCS; 2020-11-19)
PROC: 5A09357 Assistance with Respiratory Ventilation, Less than 24 Consecutive Hours, Continuous Positive Airway Pressure (ICD-10-PCS; 2020-11-20)
DX: I11.0 Hypertensive heart disease with heart failure (principal); J18.9 Pneumonia, unspecified organism; J96.21 Acute and chronic respiratory failure with hypoxia; K57.31 Diverticulosis of large intestine without perforation or abscess with bleeding; E66.2 Morbid (severe) obesity with alveolar hypoventilation; J44.0 Chronic obstructive pulmonary disease with (acute) lower respiratory infection; J44.1 Chronic obstructive pulmonary disease with (acute) exacerbation; N39.0 Urinary tract infection, site not specified; Z68.41 Body mass index [BMI] 40.0-44.9, adult; K56.7 Ileus, unspecified; I50.33 Acute on chronic diastolic (congestive) heart failure; L89.156 Pressure-induced deep tissue damage of sacral region; R32 Unspecified urinary incontinence; D50.9 Iron deficiency anemia, unspecified; E87.6 Hypokalemia; F17.210 Nicotine dependence, cigarettes, uncomplicated; Z20.822 Contact with and (suspected) exposure to COVID-19; Z82.49 Family history of ischemic heart disease and other diseases of the circulatory system; Z82.5 Family history of asthma and other chronic lower respiratory diseases; Z88.0 Allergy status to penicillin; Z88.1 Allergy status to other antibiotic agents; Z88.8 Allergy status to other drugs, medicaments and biological substances
CPT/HCPCS: 36415; 36600; 71045; 74177; 78278; 80048; 80053; 80305; 80320; 81003; 82040; 82375; 82550; 82728; 82805; 82962; 83605; 83615; 83880; 84134; 84145; 84484; 85014; 85018; 85025; 85384; 86140; 86850; 86900; 86920; 87635; 93005; 93970; 94640; 94660; 99291; A9560; C9113; C9803; J1160; J1650; J1940; J1956; J2060; J2920; J2930; J3370; J3490; J7040; J7060; P9016; Q9967; G0480

== ENCOUNTER 2020-11-26 13:00 | Inpatient (IN) | payer MEDICARE, OTHER ==
[~2020-11-26] VITALS: Ht 167.6 cm; Wt 133.4 kg
[~2020-11-26 13:00] MED LIST: FURO40TA5 PO; LORA-249 PO; MONT10TA32 PO; TIOT4MIS2 IH; [UNRECOGNIZED DRUG - CODE] PO; [UNRECOGNIZED DRUG - CODE] PO
[2020-11-26] MEDS ORDERED: FUROSEMIDE 40MG/4ML VIAL IVP ONE (13:45)
[2020-11-26] MEDS ORDERED: METHYLPREDNISOLONE SOD SUCC 125 MG/2 ML VIAL IV STA (14:30)
[2020-11-26] MEDS ORDERED: ALBUTEROL (0.083%) 2.5MG/3ML NEB HHN STA (14:30)
[2020-11-26] MEDS ORDERED: IPRATROPIUM BROMIDE (0.02%) 0.5MG/2.5ML NEB HHN STA (14:30)
[2020-11-26 14:41] LABS: CHLORIDE 104 mEq/L (98-107)
[2020-11-26 14:43] LABS: HEMATOCRIT. 29.2 % (36.0-48.0); MEAN CORPUSCULAR HEMOGLOBIN 24.8 pg (28.0-32.0); MEAN CORPUSCULAR VOLUME 80.2 fL (81.0-99.0); MEAN PLATELET VOLUME 8.7 fl (7.4-10.4); PLATELET 343 x1000/uL (130-400); RED BLOOD CELL COUNT 3.64 mill/uL (4.2-5.4)
[2020-11-26 15:51] LABS: BG BASE EXCESS 9.9 mmol/L (-2.0-2.0); BG CARBOXYHEMOGLOBIN 0.8 % (0.5-1.5); BG DEOXYHEMOGLOBIN 1.5 % (0.0-5.0); BG FRACTION INSPIRED OXYGEN 50; BG HCO3 ACT 36.2 mmol/L (22.0-26.0); BG METHEMOGLOBIN 0.4 % (0.0-1.5); BG OXYGEN SATURATION 98.5 % (92.0-98.5); BG OXYHEMOGLOBIN 97.3 % (94.0-97.0); BG PCO2 60.8 mmHg (35.0-45.0); BG PH 7.393 (7.350-7.450); BG SAMPLE SITE LEFT BRACHIAL; BG TOTAL RESPIRATORY RATE 21 b/min; BG VENT MODE MASK - BIPAP
[2020-11-26 17:35] LABS: PLATELET ESTIMATE NORMAL
[2020-11-26] MEDS ORDERED: LEVOFLOXACIN 500MG PREMIX 100 ML IV SCH (18:45)
[2020-11-26] MEDS: LEVOFLOXACIN 750MG PREMIX 150 ML IV SCH (19:00)
[2020-11-26] MEDS ORDERED: ONDANSETRON HCL 4MG/2ML INJ IV PRN (21:45)
[2020-11-26] MEDS ORDERED: CLONIDINE 0.1MG TABLET PO PRN (21:45)
[2020-11-26] MEDS ORDERED: NALOXONE HCL 0.4MG/ML VIAL IV PRN (22:30)
[2020-11-26 23:44] VITALS: BP 99/60
[2020-11-27] VITALS (13 sets, daily range): BP systolic 95–122; BP diastolic 56–71
[2020-11-27] MEDS: ENOXAPARIN 30MG/0.3ML SYR SUBCUT SCH ×2 (01:32→08:05)
[2020-11-27] MEDS: METHYLPREDNISOLONE SOD SUCC 40 MG/ML VIAL IV SCH ×4 (01:32→20:55)
[2020-11-27] MEDS: IPRATROPIUM/ALBUTEROL 0.5-3(2.5)MG/3ML NEB HHN SCH ×4 (02:09→21:00)
[2020-11-27 07:36] LABS: HEMATOCRIT. 24.8 % (36.0-48.0); HEMOGLOBIN. 7.6 g/dL (12.0-16.0); MEAN CORPUSCULAR HEMOGLOBIN 24.7 pg (28.0-32.0); MEAN CORPUSCULAR VOLUME 80.2 fL (81.0-99.0); MEAN PLATELET VOLUME 8.8 fl (7.4-10.4); PLATELET 280 x1000/uL (130-400); RED BLOOD CELL COUNT 3.09 mill/uL (4.2-5.4); RED CELL DISTRIBUTION WIDTH 21.2 % (11.6-14.6)
[2020-11-27 07:44] LABS: CHLORIDE 106 mEq/L (98-107)
[2020-11-27 07:56] LABS: PHOSPHORUS 3.8 mg/dL (2.5-4.9)
[2020-11-27] MEDS: HYDROCODONE/ACETAMINOPHEN 5/325MG TABLET PO PRN ×2 (08:03→15:50)
[2020-11-27] MEDS: FUROSEMIDE 40MG/4ML VIAL IVP SCH (08:04)
[2020-11-27] MEDS: OMEPRAZOLE 20MG CAPSULE EXTENDED RELEASE PO SCH (08:04)
[2020-11-27] MEDS: LORAZEPAM 2MG/ML CPJ IV PRN (10:54)
[2020-11-27 14:48] LABS: *AMPHETAMINES SCREEN URINE NEGATIVE (NEGATIVE); *BARBITURATES SCREEN URINE NEGATIVE (NEGATIVE); *BENZODIAZEPINES SCREEN URINE NEGATIVE (NEGATIVE); *COCAINE SCREEN URINE NEGATIVE (NEGATIVE); CANNABINOID URINE SCREEN NEGATIVE (NEGATIVE); METHADONE URINE SCREEN NEGATIVE (NEGATIVE)
[2020-11-27 14:49] LABS: OPIATES URINE SCREEN PRESUMTIVE POSITIVE (NEGATIVE); PHENCYCLIDINE URINE SCREEN NEGATIVE (NEGATIVE)
[2020-11-27] MEDS: LEVOFLOXACIN 750MG PREMIX 150 ML IV SCH (18:25)
[2020-11-27 20:30] LABS: PLATELET ESTIMATE NORMAL
[2020-11-28] VITALS (16 sets, daily range): BP systolic 94–133; BP diastolic 53–110
[2020-11-28] MEDS: IPRATROPIUM/ALBUTEROL 0.5-3(2.5)MG/3ML NEB HHN SCH ×4 (00:40→20:14)
[2020-11-28] MEDS: METHYLPREDNISOLONE SOD SUCC 40 MG/ML VIAL IV SCH ×3 (05:34→20:25)
[2020-11-28 05:48] LABS: HEMATOCRIT. 23.7 % (36.0-48.0); HEMOGLOBIN. 7.3 g/dL (12.0-16.0); MEAN CORPUSCULAR HEMOGLOBIN 24.6 pg (28.0-32.0); MEAN CORPUSCULAR VOLUME 80.4 fL (81.0-99.0); PLATELET 259 x1000/uL (130-400); RED BLOOD CELL COUNT 2.95 mill/uL (4.2-5.4)
[2020-11-28] MEDS: HYDROCODONE/ACETAMINOPHEN 5/325MG TABLET PO PRN ×3 (05:57→20:25)
[2020-11-28 06:06] LABS: FOLIC ACID (FOLATE) SERUM 6.3 ng/mL (>5.38)
[2020-11-28 06:12] LABS: T4 FREE 0.73 ng/dL (0.76-1.46)
[2020-11-28] MEDS: MAGNESIUM/ALUMINUM HYDROXIDE/SIMETHICONE 30ML UDC PO PRN (06:26)
[2020-11-28] MEDS: OMEPRAZOLE 20MG CAPSULE EXTENDED RELEASE PO SCH (08:38)
[2020-11-28] MEDS: FUROSEMIDE 40MG/4ML VIAL IVP SCH (08:38)
[2020-11-28] MEDS: LEVOFLOXACIN 750MG PREMIX 150 ML IV SCH (17:51)
[2020-11-28 21:55] LABS: HEMATOCRIT 25.4 % (36.0-48.0); HEMOGLOBIN 8.3 g/dL (12.0-16.0)
[2020-11-29] VITALS: BP 126/76
[2020-11-29] MEDS: IPRATROPIUM/ALBUTEROL 0.5-3(2.5)MG/3ML NEB HHN SCH ×4 (02:05→21:49)
[2020-11-29 04:00] VITALS: BP 134/71
[2020-11-29 07:21] LABS: HEMATOCRIT. 26.5 % (36.0-48.0); HEMOGLOBIN. 8.3 g/dL (12.0-16.0); MEAN CORPUSCULAR HEMOGLOBIN 25.3 pg (28.0-32.0); MEAN CORPUSCULAR VOLUME 80.6 fL (81.0-99.0); MEAN PLATELET VOLUME 9.2 fl (7.4-10.4); PLATELET 313 x1000/uL (130-400); RED BLOOD CELL COUNT 3.29 mill/uL (4.2-5.4)
[2020-11-29 07:23] LABS: CHLORIDE 99 mEq/L (98-107)
[2020-11-29 08:01] VITALS: BP 144/74
[2020-11-29] MEDS: FUROSEMIDE 40MG/4ML VIAL IVP SCH (08:16)
[2020-11-29] MEDS: METHYLPREDNISOLONE SOD SUCC 40 MG/ML VIAL IV SCH ×2 (08:16→21:05)
[2020-11-29] MEDS: OMEPRAZOLE 20MG CAPSULE EXTENDED RELEASE PO SCH (08:17)
[2020-11-29 10:19] LABS: PLATELET ESTIMATE NORMAL
[2020-11-29] MEDS ORDERED: LACTULOSE 20G/30ML UDC PO NR (12:15)
[2020-11-29 14:51] LABS: PLATELET ESTIMATE NORMAL
[2020-11-29 16:00] VITALS: BP 122/64
[2020-11-29] MEDS ORDERED: ZOLPIDEM TARTRATE 5MG TABLET PO PRN (16:00)
[2020-11-29] MEDS: LIDOCAINE 5% PATCH TOP SCH (17:35)
[2020-11-29] MEDS: LORAZEPAM 2MG/ML CPJ IV PRN (17:51)
[2020-11-29 20:00] VITALS: BP 133/80
[2020-11-29 20:02] LABS: CLARITY URINE CLOUDY (CLEAR); KETONES URINE NEGATIVE (NEGATIVE); LEUKOCYTE ESTERASE URINE 1+ (NEGATIVE); NITRITE URINE NEGATIVE (NEGATIVE); OCCULT BLOOD URINE 2+ (NEGATIVE); PROTEIN URINE TRACE (NEGATIVE); SPECIFIC GRAVITY URINE 1.011 (1.005-1.030); UROBILINOGEN URINE 0.2 E.U./dL (0.2-1.0)
[2020-11-29 20:22] LABS: COLOR URINE PALE GREEN (YELLOW)
[2020-11-29] MEDS: LEVOFLOXACIN 750MG PREMIX 150 ML IV SCH (21:05)
[2020-11-30] VITALS: BP 148/94
[2020-11-30] MEDS: IPRATROPIUM/ALBUTEROL 0.5-3(2.5)MG/3ML NEB HHN SCH ×4 (02:59→19:44)
[2020-11-30 04:00] VITALS: BP 155/82
[2020-11-30] MEDS: OMEPRAZOLE 20MG CAPSULE EXTENDED RELEASE PO SCH (06:09)
[2020-11-30 08:00] VITALS: BP 127/67
[2020-11-30] MEDS: FUROSEMIDE 40MG/4ML VIAL IVP SCH (08:07)
[2020-11-30] MEDS: METHYLPREDNISOLONE SOD SUCC 40 MG/ML VIAL IV SCH ×2 (08:07→19:50)
[2020-11-30] MEDS: HYDROCODONE/ACETAMINOPHEN 5/325MG TABLET PO PRN (08:09)
[2020-11-30 12:00] VITALS: BP 106/64
[2020-11-30 13:36] LABS: CHLORIDE 96 mEq/L (98-107)
[2020-11-30] MEDS: LIDOCAINE 5% PATCH TOP SCH (14:11)
[2020-11-30 16:00] VITALS: BP 151/80
[2020-11-30] MEDS: LEVOFLOXACIN 750MG PREMIX 150 ML IV SCH (18:05)
[2020-11-30] MEDS: LORAZEPAM 2MG/ML CPJ IV PRN (18:57)
[2020-11-30 22:38] LABS: HEMATOCRIT. 29.8 % (36.0-48.0); HEMOGLOBIN. 9.3 g/dL (12.0-16.0); MEAN CORPUSCULAR HEMOGLOBIN 25.4 pg (28.0-32.0); MEAN CORPUSCULAR VOLUME 81.2 fL (81.0-99.0); MEAN PLATELET VOLUME 9.4 fl (7.4-10.4); PLATELET 307 x1000/uL (130-400); RED BLOOD CELL COUNT 3.68 mill/uL (4.2-5.4); RED CELL DISTRIBUTION WIDTH 21.6 % (11.6-14.6)
[2020-11-30 23:20] LABS: PLATELET ESTIMATE NORMAL
[2020-12-01] VITALS: BP 148/82
[2020-12-01] MEDS: IPRATROPIUM/ALBUTEROL 0.5-3(2.5)MG/3ML NEB HHN SCH ×4 (02:13→20:43)
[2020-12-01 04:00] VITALS: BP 142/88
[2020-12-01] MEDS: OMEPRAZOLE 20MG CAPSULE EXTENDED RELEASE PO SCH (06:33)
[2020-12-01 08:00] VITALS: BP 148/77
[2020-12-01] MEDS: METHYLPREDNISOLONE SOD SUCC 40 MG/ML VIAL IV SCH (08:45)
[2020-12-01] MEDS: FUROSEMIDE 40MG/4ML VIAL IVP SCH (08:45)
[2020-12-01] MEDS: LIDOCAINE 5% PATCH TOP SCH (08:46)
[2020-12-01 12:00] VITALS: BP 123/74
[2020-12-01] MEDS: HYDROCODONE/ACETAMINOPHEN 5/325MG TABLET PO PRN ×2 (14:48→20:29)
[2020-12-01 16:00] VITALS: BP 111/67
[2020-12-01] MEDS: LORAZEPAM 2MG/ML CPJ IV PRN (18:56)
[2020-12-01 20:00] VITALS: BP 126/78
[2020-12-02] VITALS: BP 156/91
[2020-12-02 04:00] VITALS: BP 160/82
[2020-12-02] MEDS: IPRATROPIUM/ALBUTEROL 0.5-3(2.5)MG/3ML NEB HHN SCH ×4 (05:58→20:39)
[2020-12-02] MEDS: ACETAMINOPHEN 325MG TABLET PO PRN ×2 (06:53→16:17)
[2020-12-02 08:00] VITALS: BP 101/60
[2020-12-02] MEDS ORDERED: DILTIAZEM HCL 5MG/ML 5ML VIAL IV NR (09:00)
[2020-12-02] MEDS: PREDNISONE 20MG TABLET PO SCH (09:22)
[2020-12-02] MEDS: FUROSEMIDE 40MG/4ML VIAL IVP SCH (09:23)
[2020-12-02] MEDS: LIDOCAINE 5% PATCH TOP SCH (09:24)
[2020-12-02] MEDS: DILTIAZEM HCL 60MG TABLET PO SCH ×2 (11:40→17:10)
[2020-12-02] MEDS: LORAZEPAM 2MG/ML CPJ IV PRN (11:40)
[2020-12-02 12:00] VITALS: BP 93/48
[2020-12-02 16:00] VITALS: BP 112/73
[2020-12-02] MEDS ORDERED: DIGOXIN 500MCG/2ML AMP IV NR ×2 (16:30→18:45)
[2020-12-02] MEDS: ENOXAPARIN 150MG/ML SYR SUBCUT SCH (17:10)
[2020-12-02 20:00] VITALS: BP 111/66
[2020-12-02 21:00] LABS: HEMATOCRIT. 32.2 % (36.0-48.0); HEMOGLOBIN. 9.7 g/dL (12.0-16.0); MEAN CORPUSCULAR HEMOGLOBIN 24.5 pg (28.0-32.0); MEAN CORPUSCULAR VOLUME 81.4 fL (81.0-99.0); MEAN PLATELET VOLUME 9.1 fl (7.4-10.4); PLATELET 342 x1000/uL (130-400); RED BLOOD CELL COUNT 3.96 mill/uL (4.2-5.4); RED CELL DISTRIBUTION WIDTH 22.2 % (11.6-14.6)
[2020-12-02] MEDS ORDERED: DIGOXIN 500MCG/2ML AMP IV PRN (21:00)
[2020-12-02 21:08] LABS: INR 1.1; PROTHROMBIN TIME 11.4 sec (9.6-11.0)
[2020-12-02 21:10] LABS: CHLORIDE 94 mEq/L (98-107)
[2020-12-02 21:44] LABS: PLATELET ESTIMATE NORMAL
[2020-12-03] VITALS (7 sets, daily range): BP systolic 82–123; BP diastolic 53–85
[2020-12-03] MEDS: DILTIAZEM HCL 60MG TABLET PO SCH ×4 (00:40→17:47)
[2020-12-03] MEDS: IPRATROPIUM/ALBUTEROL 0.5-3(2.5)MG/3ML NEB HHN SCH ×4 (01:11→20:15)
[2020-12-03 04:40] LABS: CHLORIDE 96 mEq/L (98-107)
[2020-12-03] MEDS: ENOXAPARIN 150MG/ML SYR SUBCUT SCH ×2 (05:11→17:50)
[2020-12-03] MEDS: ACETAMINOPHEN 325MG TABLET PO PRN (06:01)
[2020-12-03 06:43] LABS: HEMATOCRIT 29.9 % (36.0-48.0); HEMOGLOBIN 9.5 g/dL (12.0-16.0); MEAN CORPUSCULAR HEMOGLOBIN 25.2 pg (28.0-32.0); MEAN CORPUSCULAR VOLUME 79.3 fL (81.0-99.0); PLATELET 360 x1000/uL (130-400); RED BLOOD CELL COUNT 3.77 mill/uL (4.2-5.4); RED CELL DISTRIBUTION WIDTH 22.1 % (11.6-14.6)
[2020-12-03] MEDS: FUROSEMIDE 40MG/4ML VIAL IVP SCH (09:00)
[2020-12-03] MEDS: PREDNISONE 20MG TABLET PO SCH (09:39)
[2020-12-03] MEDS ORDERED: SODIUM CHLORIDE 0.9% 500 ML IV NR (09:45)
[2020-12-03] MEDS: LIDOCAINE 5% PATCH TOP SCH (09:49)
[2020-12-03] MEDS: LORAZEPAM 2MG/ML CPJ IV PRN (11:14)
[2020-12-03] MEDS: MAGNESIUM/ALUMINUM HYDROXIDE/SIMETHICONE 30ML UDC PO PRN (16:52)
[2020-12-03] MEDS ORDERED: DIGOXIN 500MCG/2ML AMP IV SCH (21:00)
== END 2020-12-03 21:26 | DRG 871 ==
LOC: ER 13:00 → MICUSO 15:24 → EDBEDREQ 15:27 → EDBEDREQTM 15:27 → 5EST 21:53 → 7EST 11-29 19:08
PROVIDERS: ADMIT Internal Medicine Nephrology; ATTEND Internal Medicine Nephrology
PROC: 5A09457 Assistance with Respiratory Ventilation, 24-96 Consecutive Hours, Continuous Positive Airway Pressure (ICD-10-PCS; 2020-11-26)
PROC: 30233N1 Transfusion of Nonautologous Red Blood Cells into Peripheral Vein, Percutaneous Approach (ICD-10-PCS; principal; 2020-11-28)
PROC: 5A09357 Assistance with Respiratory Ventilation, Less than 24 Consecutive Hours, Continuous Positive Airway Pressure (ICD-10-PCS; 2020-11-28)
PROC: 5A09457 Assistance with Respiratory Ventilation, 24-96 Consecutive Hours, Continuous Positive Airway Pressure (ICD-10-PCS; 2020-11-29)
PROC: 5A09357 Assistance with Respiratory Ventilation, Less than 24 Consecutive Hours, Continuous Positive Airway Pressure (ICD-10-PCS; 2020-12-02)
DX: A41.9 Sepsis, unspecified organism (principal); J96.01 Acute respiratory failure with hypoxia; J96.02 Acute respiratory failure with hypercapnia; J18.9 Pneumonia, unspecified organism; I50.33 Acute on chronic diastolic (congestive) heart failure; J44.1 Chronic obstructive pulmonary disease with (acute) exacerbation; E44.0 Moderate protein-calorie malnutrition; R45.851 Suicidal ideations; E87.2 Acidosis; Z68.42 Body mass index [BMI] 45.0-49.9, adult; G82.20 Paraplegia, unspecified; I48.92 Unspecified atrial flutter; I11.0 Hypertensive heart disease with heart failure; D72.829 Elevated white blood cell count, unspecified; N28.9 Disorder of kidney and ureter, unspecified; L89.156 Pressure-induced deep tissue damage of sacral region; M54.10 Radiculopathy, site unspecified; M48.061 Spinal stenosis, lumbar region without neurogenic claudication; G89.29 Other chronic pain; F17.210 Nicotine dependence, cigarettes, uncomplicated; R53.81 Other malaise; D64.9 Anemia, unspecified; R73.9 Hyperglycemia, unspecified; M48.02 Spinal stenosis, cervical region; E87.6 Hypokalemia; F32.9 Major depressive disorder, single episode, unspecified; E66.09 Other obesity due to excess calories; G47.33 Obstructive sleep apnea (adult) (pediatric); I48.0 Paroxysmal atrial fibrillation; Z99.81 Dependence on supplemental oxygen; Z82.49 Family history of ischemic heart disease and other diseases of the circulatory system; Z88.1 Allergy status to other antibiotic agents; Z88.0 Allergy status to penicillin; Z88.8 Allergy status to other drugs, medicaments and biological substances; Z79.84 Long term (current) use of oral hypoglycemic drugs; Z79.899 Other long term (current) drug therapy; Z87.01 Personal history of pneumonia (recurrent); Z68.36 Body mass index [BMI] 36.0-36.9, adult; Z82.3 Family history of stroke
CPT/HCPCS: 36415; 36600; 71045; 80048; 80053; 80076; 80305; 81003; 82040; 82375; 82607; 82746; 82805; 83036; 83735; 83880; 84100; 84134; 84145; 84439; 84443; 84481; 84484; 85014; 85018; 85025; 85027; 86850; 86900; 86920; 93005; 93970; 94640; 94660; 97162; 97166; 97530; 97535; 99291; A6261; J1160; J1650; J1940; J1956; J2060; J2920; J2930; J3490; J7512; P9021